=== PATIENT | male | born 1985 | race Two or more races ===

== ENCOUNTER 2016-10-23 12:13 | Emergency (ER) | payer SELFPAY ==
[~2016-10-23] VITALS: Ht 165.1 cm; Wt 65.8 kg
[2016-10-23 12:32] VITALS: BP 140/87
--- NOTE | 2016-10-23 13:03 | Emergency Room Report ---
History of Present Illness General Chief Complaint: Skin Rash/Abscess Source: Patient Present Illness HPI 31-year-old male presents to the emergency department complaining of itchy rash to the torso x1 month. Patient states rash with unresponsive to cortisone and Benadryl. Patient reports intermittent subjective fevers and chills with some mild lethargy. Patient denies ill contacts or recent travel. Patient states is from [facility] and has been vaccinated and also had chickenpox as a child. Patient states the rash has not spread farther than the initial area on the torso. Patient denies involvement of the palms or soles. Patient denies joint pain, headache, visual changes, lesions in the male, nausea, vomiting, abdominal pain. he denies medical history. he denies history of STI. Denies CP , Palpitations, LOC, AMS, dizziness, Changes in Vision, Sensation, paresthesias , or a sudden severe headache. Allergies: Coded Allergies: No Known Allergies (Unverified , 10/23/16) Patient History Past Medical History: see triage record Past Surgical History: none Pertinent Family History: none Immunizations: UTD Reviewed Nursing Documentation: PMH: Agreed, PSxH: Agreed Nursing Documentation-PMH Past Medical History: No Stated History Review of Systems All Other Systems: negative except mentioned in HPI Physical Exam Vital Signs Date Time Temp Pulse Resp B/P (MAP) Pulse Ox O2 Delivery O2 Flow Rate FiO2 10/23/16 12:23 97.9 86 20 140/87 98 Room Air Sp02 EP Interpretation: reviewed, normal General Appearance: no apparent distress, alert, GCS 15, non-toxic Head: normocephalic, atraumatic Eyes: bilateral eye normal inspection, bilateral eye PERRL ENT: hearing grossly normal, normal pharynx, no angioedema, normal voice, other - no oral lesions Neck: full range of motion, no meningismus, no bony tend, supple/symm/no masses Respiratory: chest non-tender, lungs clear, normal breath sounds, speaking full sentences Cardiovascular #1: regular rate, rhythm Gastrointestinal: non tender, soft, no guarding, no rebound, other - pustular like rash with discrete erythematous lesions less than 1mm each on the anterior chest, abdomen, and back. no blisters, no sloughing of the skin. no ulcers. Rectal: deferred Musculoskeletal: back normal, gait/station normal, normal range of motion, non- tender Neurologic: alert, oriented x3, responsive, motor strength/tone normal, sensory intact, speech normal Psychiatric: judgement/insight normal, memory normal, mood/affect normal Skin: normal color, warm/dry, well hydrated, rash - pustular like rash with discrete erythematous lesions less than 1mm each on the anterior chest, abdomen , and back. no blisters, no sloughing of the skin. no ulcers. Lymphatic: no adenopathy Medical Decision Making PA Attestation Dr. Fenton is my supervising Physician whom patient management has been discussed with. Diagnostic Impression: Primary Impression: Rash and other nonspecific skin eruption Additional Impression: Folliculitis ER Course 31-year-old male presents to the emergency department complaining of itchy rash to the torso x1 month. Patient states rash with unresponsive to cortisone and Benadryl. Patient reports intermittent subjective fevers and chills with some mild lethargy. Patient denies ill contacts or recent travel. Patient states is from [facility] and has been vaccinated and also had chickenpox as a child. Patient states the rash has not spread farther than the initial area on the torso. Patient denies involvement of the palms or soles. Patient denies joint pain, headache, visual changes, lesions in the male, nausea, vomiting, abdominal pain. he denies medical history. he denies history of STI. Denies CP , Palpitations, LOC, AMS, dizziness, Changes in Vision, Sensation, paresthesias , or a sudden severe headache. Ddx considered but are not limited to cellulitis, scabies, shingles, varicella , dermatitis, urticaria, eczema, tinea, viral exanthem, Vital signs: are WNL, pt. is afebrile, pt is NAD, non-toxic in appearance H&PE are most consistent with folliculitis ORDERS: -CBC and CMP: are unremarkable. ED INTERVENTIONS: None required at this time. d/w pt. proper follow up with dermatology referral from his PCP if symptoms persist. d/w pt. to return promptly to the ED with worsening or new symptoms. DISCHARGE: At this time pt. is stable for d/c to home. Will provide printed patient care instructions, and any necessary prescriptions. Care plan and follow up instructions have been discussed with the patient prior to discharge. Labs Test 10/23/16 13:17 White Blood Count 9.8 K/UL (4.8-10.8) Red Blood Count 5.98 M/UL (4.70-6.10) Hemoglobin 17.6 G/DL (14.2-18.0) Hematocrit 55.3 % (42.0-52.0) Mean Corpuscular Volume 93 FL (80-99) Mean Corpuscular Hemoglobin 29.4 PG (27.0-31.0) Mean Corpuscular Hemoglobin Concent 31.8 G/DL (32.0-36.0) Red Cell Distribution Width 12.1 % (11.6-14.8) Platelet Count 228 K/UL (150-450) Mean Platelet Volume 7.2 FL (6.5-10.1) Neutrophils (%) (Auto) 65.1 % (45.0-75.0) Lymphocytes (%) (Auto) 24.9 % (20.0-45.0) Monocytes (%) (Auto) 8.3 % (1.0-10.0) Eosinophils (%) (Auto) 1.0 % (0.0-3.0) Basophils (%) (Auto) 0.8 % (0.0-2.0) Sodium Level 138 mEQ/L (135-145) Potassium Level 4.3 mEQ/L (3.4-4.9) Chloride Level 99 mEQ/L (98-107) Carbon Dioxide Level 26 mEQ/L (20-30) Anion Gap 13 (5-15) Blood Urea Nitrogen 12 mg/dL (7-23) Creatinine 0.8 mg/dL (0.7-1.2) Estimat Glomerular Filtration Rate > 60 mL/min (>60) Glucose Level 89 mg/dL (74-106) Calcium Level 9.7 mg/dL (8.6-10.2) Total Bilirubin 0.7 mg/dL (0.0-1.2) Aspartate Amino Transf (AST/SGOT) 19 U/L (5-40) Alanine Aminotransferase (ALT/SGPT) 13 U/L (3-41) Alkaline Phosphatase 45 U/L (40-129) Total Protein 7.6 g/dL (6.6-8.7) Albumin 4.7 g/dL (3.5-5.2) Globulin 2.9 g/dL Albumin/Globulin Ratio 1.6 (1.0-2.7) Last Vital Signs Date Time Temp Pulse Resp B/P (MAP) Pulse Ox O2 Delivery O2 Flow Rate FiO2 10/23/16 12:32 97.9 84 20 140/87 98 Room Air Disposition: HOME, SELF-CARE Condition: Stable Scripts Hydroxyzine Hcl (HYDROXYZINE HCL) 25 Mg Tablet 25 MG PO Q6HR, #20 TAB Prov: Herminia Hartman 10/23/16 Trimethoprim/Sulfamethoxazole 160/800* (BACTRIM DS TABLET*) 1 Each Tablet 1 TAB ORAL TWICE A DAY for 10 Days, #20 TAB Prov: Herminia Hartman 10/23/16 Referrals: NOT CHOSEN IPA/MD,REFERRING (PCP) Patient Instructions: Rash Additional Instructions: Take medications as directed. Follow up with a Primary Care Provider in 3-5 days, even if your symptoms have resolved. DERMATOLOGY EVALUATION IS RECOMMENDED --Please review list of primary care clinics, if you do not already have a primary care provider Return sooner to ED if new symptoms occur, or current symptoms become worse. Do not drink alcohol, drive, or operate heavy machinery while taking Hydroxyzine as this may cause drowsiness. - Please note that this Emergency Department Report was dictated using [employer] and housing director technology software, occasionally this can lead to erroneous entry secondary to interpretation by the dictation equipment. Herminia Hartman Oct 23, 2016 13:03
[2016-10-23 13:32] LABS: BASOPHILS % (AUTO) 0.8 % (0.0-2.0); LYMPHOCYTES % (AUTO) 24.9 % (20.0-45.0); MEAN CORPUSCULAR HEMOGLOBIN 29.4 PG (27.0-31.0); MEAN CORPUSCULAR HGB CONC 31.8 G/DL (32.0-36.0); MEAN CORPUSCULAR VOLUME 93 FL (80-99); MEAN PLATELET VOLUME 7.2 FL (6.5-10.1); MONOCYTES % (AUTO) 8.3 % (1.0-10.0); NEUTROPHILS % (AUTO) 65.1 % (45.0-75.0); PLATELET COUNT 228 K/UL (150-450); RED BLOOD COUNT 5.98 M/UL (4.70-6.10); RED CELL DISTRIBUTION WIDTH 12.1 % (11.6-14.8); WHITE BLOOD COUNT 9.8 K/UL (4.8-10.8)
[2016-10-23 13:47] LABS: ALANINE AMINOTRANSFERASE 13 U/L (3-41); ALBUMIN/GLOBULIN RATIO 1.6 (1.0-2.7); ANION GAP 13 (5-15); ASPARTATE AMINO TRANSFERASE 19 U/L (5-40); CALCIUM 9.7 mg/dL (8.6-10.2); CARBON DIOXIDE 26 mEQ/L (20-30); CHLORIDE 99 mEQ/L (98-107); CREATININE 0.8 mg/dL (0.7-1.2); GLOMERULAR FILTRATION RATE > 60 mL/min (>60); HEMOLYSIS 33; POTASSIUM 4.3 mEQ/L (3.4-4.9); SODIUM 138 mEQ/L (135-145); TOTAL PROTEIN 7.6 g/dL (6.6-8.7)
[2016-10-23] MEDS ORDERED: BACTRIM DS TAB1 EAC1 ORAL (14:10)
[2016-10-23] MEDS ORDERED: HYDROXYZINE HCL25 M1 PO (14:10)
[2016-10-23 14:21] VITALS: BP 140/87
== END 2016-10-23 14:22 | disposition home or self-care (01) ==
LOC: EMR 12:30
DX: R21 Rash and other nonspecific skin eruption (principal); L73.9 Follicular disorder, unspecified
CPT/HCPCS: 36415; 80053; 85025; 99284

== ENCOUNTER 2016-10-28 18:02 | Emergency (ER) | payer SELFPAY ==
[~2016-10-28] VITALS: Ht 165.1 cm; Wt 75.3 kg
[~2016-10-28 18:02] MED LIST: BACTRIM DS TAB1 EAC1 ORAL; HYDROXYZINE HCL25 M1 PO
[2016-10-28] MEDS ORDERED: CLINDAMYCIN HC150 MG ORAL (18:56)
[2016-10-28 19:00] VITALS: BP 122/82
--- NOTE | 2016-10-28 20:53 | Emergency Room Report ---
History of Present Illness General Chief Complaint: Skin Rash/Abscess Source: Patient Present Illness [facility] The patient is a 31-year-old male presenting for continued rash. She was seen in this emergency department one week prior and diagnosed with folliculitis for which she was given a prescription for Bactrim which she states did not help. He was seen by his primary doctor before this visit and given a prescription for both Bactrim and Keflex which he states did not help. He admits to mild itching and pain described as a 9/10 burning sensation. Worse with touch. He denies any known allergy. He is unsure of why the rash started. He was told to follow up with dermatology which he has not. He denies any other symptoms including nausea, vomiting, fever, chills, shortness of breath Allergies: Coded Allergies: No Known Allergies (Unverified , 10/23/16) Patient History Past Medical History: see triage record Pertinent Family History: none Reviewed Nursing Documentation: PMH: Agreed, PSxH: Agreed Nursing Documentation-PMH Hx Cardiac Problems: No - appendectomy Review of Systems All Other Systems: negative except mentioned in HPI Physical Exam Vital Signs Date Time Temp Pulse Resp B/P (MAP) Pulse Ox O2 Delivery O2 Flow Rate FiO2 10/28/16 18:22 97.9 96 18 143/78 98 Room Air Sp02 EP Interpretation: reviewed, normal General Appearance: no apparent distress, alert, GCS 15, non-toxic Head: normocephalic, atraumatic Eyes: bilateral eye normal inspection, bilateral eye PERRL ENT: hearing grossly normal, normal pharynx, no angioedema, normal voice Musculoskeletal: back normal, gait/station normal, normal range of motion, non- tender Neurologic: alert, oriented x3, responsive, motor strength/tone normal, sensory intact, speech normal Psychiatric: judgement/insight normal, memory normal, mood/affect normal, no suicidal/homicidal ideation Skin: rash - papules, pustules of the chest, shoulders, upper back, and upper abdomen over follicles Lymphatic: no adenopathy Medical Decision Making PA Attestation Dr. Granados is my supervising physician. Patient management was discussed with my supervising physician Diagnostic Impression: Primary Impression: Folliculitis ER Course The patient is a 31-year-old male presenting for rash Differential diagnosis considered not limited to: Folliculitis, cellulitis, abscess, varicella, contact dermatitis, among others Physical exam: Afebrile. No apparent distress There are multiple erythematous pustules and papules of the shoulders, chest, upper abdomen, and upper back. No crusting, no diffuse erythema. No excoriation trejo The lesions appear to be over follicles. The patient will be discharged home with prescription for clindamycin and is again told he needs to see dermatology soon as possible. He understands. ER precautions are given Last Vital Signs Date Time Temp Pulse Resp B/P (MAP) Pulse Ox O2 Delivery O2 Flow Rate FiO2 10/28/16 19:00 84 15 122/82 99 Room Air 10/28/16 19:00 98.1 Status: improved Disposition: HOME, SELF-CARE Condition: Improved Scripts Clindamycin Hcl* (CLINDAMYCIN HCL*) 150 Mg Capsule 300 MG ORAL Q6HR for 7 Days, CAP Prov: ROSHNI CALABRESE 10/28/16 Patient Instructions: Folliculitis Additional Instructions: I discussed my findings with the patient. All questions and concerns have been answered. Treatment and medication compliance have been addressed. Return to ED if symptoms worsen, new symptoms arise, or if needed for any reason. Patient verbalized understanding of discharge instructions. The patient was advised that he needs to see dermatology as soon as possible. He agrees ROSHNI CALABRESE Oct 28, 2016 20:53
== END 2016-10-28 19:00 | disposition home or self-care (01) ==
LOC: EMR 18:50
DX: L73.9 Follicular disorder, unspecified (principal)
CPT/HCPCS: 99283